=== PATIENT | male | born 1990 | race Asian ===

== ENCOUNTER 2020-01-22 13:04 | Inpatient (IN) | payer MEDICAID ==
[~2020-01-22] VITALS: Ht 180.3 cm; Wt 72.0 kg
[2020-01-22] MEDS ORDERED: RISP0.5T20 PO (13:20)
[2020-01-22] MEDS ORDERED: FLUV50 PO (13:20)
[2020-01-22 14:04] LABS: BASOPHILS % (AUTO) 0.2 % (0.0-2.0); EOSINOPHILS % (AUTO) 0.4 % (1.0-6.0); HEMOGLOBIN 14.6 g/dL (13.5-17.5); LYMPHOCYTES # (AUTO) 1.8 K/uL (1.0-4.8); LYMPHOCYTES % (AUTO) 18.9 % (22.0-44.0); MEAN CORPUSCULAR HGB CONC 33.9 G/dL (31.0-37.0); MEAN CORPUSCULAR VOLUME 94 fL (80-100); MONOCYTES # (AUTO) 0.5 K/uL (0.1-1.0); MONOCYTES % (AUTO) 4.9 % (2.0-9.0); NEUTROPHILS # (AUTO) 7.4 K/uL (1.8-7.7); NEUTROPHILS % (AUTO) 75.6 % (40.0-70.0); PLATELET COUNT (AUTO) 274 K/uL (150-450); RED BLOOD CELL COUNT(AUTO) 4.55 MIL/uL (4.50-5.90); RED CELL DISTRIBUTION WIDTH 13.3 % (11.5-14.5)
[2020-01-22 14:24] LABS: ANION GAP 4 mmol/L (8-16); CALCIUM, TOTAL 8.9 mg/dL (8.8-10.5); CARBON DIOXIDE 32 mmol/L (22-29); CHLORIDE 106 mmol/L (98-107); CREATININE 0.92 mg/dL (0.60-1.30); GLOMERULAR FILTR. RATE CALC > 60 mL/min (>60); GLUCOSE,RANDOM 103 mg/dL (70-110); POTASSIUM 3.9 mmol/L (3.5-5.1); SODIUM SERUM 142 mmol/L (136-145); UREA NITROGEN, BLOOD 6 mg/dL (7-18)
[2020-01-22 14:29] LABS: ALANINE AMINOTRANSFERASE 17 U/L (12-78); ALBUMIN 3.8 g/dL (3.4-5.0); ALKALINE PHOSPHATASE 101 U/L (46-116); ASPARTATE AMINOTRANSFERASE 18 U/L (15-37); BILIRUBIN,TOTAL 0.4 mg/dL (0.1-1.0); TOTAL PROTEIN, SERUM 7.1 g/dL (6.4-8.2)
[2020-01-22 15:30] LABS: AMPHET/METH SCREEN,URINE NEGATIVE (NEGATIVE); BARBITURATE SCREEN, URINE NEGATIVE (NEGATIVE); BENZODIAZEPINES SCREEN,URINE NEGATIVE (NEGATIVE); CANNABINOID SCREEN,URINE POSITIVE (NEGATIVE); COCAINE SCREEN,URINE NEGATIVE (NEGATIVE); METHADONE SCREEN, URINE NEGATIVE (NEGATIVE); OPIATE SCREEN,URINE NEGATIVE (NEGATIVE)
[2020-01-22 15:32] LABS: PHENCYCLIDINE SCREEN,URINE NEGATIVE (NEGATIVE)
[2020-01-22] MEDS ORDERED: LORazepam 1 MG TABLET PO ONE ×2 (15:45→17:00)
[2020-01-22] MEDS ORDERED: PROPARACAINE HCL 0.5% 15 ML OPHTHALMIC SOLUTION OS ONE (16:15)
[2020-01-22] MEDS ORDERED: CIPROFLOXACIN HCL 0.3% 2.5 ML OPHTHALMIC SOLUTION AS ONE (16:15)
[2020-01-22] MEDS ORDERED: FLUORESCEIN SODIUM 1 MG STRIP ONE (16:20)
[2020-01-22] MEDS ORDERED: FLUORESCEIN SODIUM 1 MG STRIP OD ONE (16:30)
[2020-01-22] MEDS ORDERED: RisperiDONE 1 MG TABLET PO ONE (18:00)
[2020-01-22 18:41] LABS: COVID AG,FIA SOURCE NASOPHARYNGEAL
[2020-01-22] MEDS: LORazepam 2 MG TABLET PO PRN (22:27)
[2020-01-22] MEDS: HALOPERIDOL 5 MG TABLET PO PRN (22:28)
[2020-01-23 01:26] VITALS: BP 124/82
[2020-01-23] MEDS: ZOLPIDEM TARTRATE 10 MG TABLET PO PRN ×2 (01:38→20:13)
[2020-01-23] MEDS: HALOPERIDOL 5 MG TABLET PO PRN ×2 (02:14→16:03)
[2020-01-23] MEDS: LORazepam 2 MG TABLET PO PRN ×3 (02:14→17:44)
[2020-01-23] MEDS ORDERED: IBUPROFEN 400 MG TABLET PO PRN (08:00)
[2020-01-23] MEDS ORDERED: ALBUTEROL SULFATE HFA 90 MCG/PUFF 8 GM INHALER IH PRN (08:00)
[2020-01-23] MEDS ORDERED: MAG HYDROX/AL HYDROX/SIMETH ES 30 ML SUSPENSION UDCUP PO PRN (08:00)
[2020-01-23] MEDS ORDERED: PETROLATUM,WHITE 28 GM JELLY TP PRN (08:00)
[2020-01-23] MEDS ORDERED: LOPERAMIDE HCL 2 MG CAPSULE PO PRN (08:00)
[2020-01-23] MEDS ORDERED: ONDANSETRON HCL 4 MG TABLET PO PRN (08:00)
[2020-01-23] MEDS ORDERED: ACETAMINOPHEN 325 MG TABLET PO PRN (08:00)
[2020-01-23] MEDS ORDERED: MAGNESIUM HYDROXIDE SUSPENSION 30 ML UDCUP PO PRN (08:00)
[2020-01-23] MEDS ORDERED: NICOTINE 14 MG/24 HOUR PATCH TD PRN (08:00)
[2020-01-23] MEDS ORDERED: DOCUSATE SODIUM 100 MG CAPSULE PO PRN (08:00)
[2020-01-23] MEDS ORDERED: CloNIDine HCL 0.1 MG TABLET PO PRN (08:00)
[2020-01-23] MEDS ORDERED: GuaiFENesin/D-METHORPHAN [SUGAR-FREE] 200-20MG/10 ML SYRUP UDCUP PO PRN (08:00)
[2020-01-23 08:04] LABS: CHOL/HDL RATIO 1.9 (4.2-7.3)
[2020-01-23 08:39] VITALS: BP 133/82
[2020-01-23] MEDS: RisperiDONE 2 MG TABLET PO SCH (12:54)
[2020-01-23 16:13] VITALS: BP 115/70
[2020-01-23] MEDS: CIPROFLOXACIN HCL 0.3% 3.5 GM OPHTHALMIC OINTMENT OU SCH (17:40)
[2020-01-23] MEDS: FluvoxaMINE MALEATE 50 MG TABLET PO SCH (20:13)
[2020-01-23] MEDS: RisperiDONE 3 MG TABLET PO SCH (20:13)
[2020-01-24 06:05] VITALS: BP 109/74
[2020-01-24] MEDS: LORazepam 2 MG TABLET PO PRN (08:02)
[2020-01-24] MEDS: RisperiDONE 2 MG TABLET PO SCH (08:02)
[2020-01-24] MEDS: CIPROFLOXACIN HCL 0.3% 3.5 GM OPHTHALMIC OINTMENT OU SCH ×4 (08:08→16:09)
[2020-01-24 08:25] VITALS: BP 110/67
[2020-01-24] MEDS: BusPIRone HCL 10 MG TABLET PO SCH ×2 (13:23→16:09)
[2020-01-24] MEDS: HALOPERIDOL 5 MG TABLET PO PRN (13:56)
[2020-01-24 14:25] VITALS: BP 118/89
[2020-01-24 16:23] VITALS: BP 126/85
[2020-01-24] MEDS ORDERED: DiphenhydrAMINE HCL 50 MG/ML VIAL IM ONE (16:30)
[2020-01-24] MEDS ORDERED: HALOPERIDOL LACTATE 5 MG/ML VIAL IM ONE (16:30)
[2020-01-24] MEDS ORDERED: LORazepam 2 MG/ML VIAL IM ONE (16:30)
[2020-01-24] MEDS: RisperiDONE 3 MG TABLET PO SCH (21:01)
[2020-01-24] MEDS: ZOLPIDEM TARTRATE 10 MG TABLET PO PRN (21:01)
[2020-01-24] MEDS: FluvoxaMINE MALEATE 50 MG TABLET PO SCH (21:01)
[2020-01-25 06:58] VITALS: BP 117/69
[2020-01-25 08:23] VITALS: BP 113/74
[2020-01-25] MEDS: BusPIRone HCL 10 MG TABLET PO SCH (09:04)
[2020-01-25] MEDS: RisperiDONE 2 MG TABLET PO SCH (09:05)
[2020-01-25] MEDS: CIPROFLOXACIN HCL 0.3% 3.5 GM OPHTHALMIC OINTMENT OU SCH ×3 (09:05→16:24)
[2020-01-25] MEDS: BusPIRone HCL 15 MG TABLET PO SCH ×2 (13:31→16:24)
[2020-01-25 16:21] VITALS: BP 136/89
[2020-01-25] MEDS: FluvoxaMINE MALEATE 50 MG TABLET PO SCH (20:08)
[2020-01-25] MEDS: ZOLPIDEM TARTRATE 10 MG TABLET PO PRN (20:08)
[2020-01-25] MEDS: RisperiDONE 4 MG TABLET PO SCH (20:08)
[2020-01-26 04:59] VITALS: BP 129/82
[2020-01-26 06:18] VITALS: BP 119/90
[2020-01-26] MEDS ORDERED: RisperiDONE 2 MG TABLET PO SCH (08:00)
[2020-01-26 08:31] VITALS: BP 129/72
[2020-01-26] MEDS: CIPROFLOXACIN HCL 0.3% 3.5 GM OPHTHALMIC OINTMENT OU SCH ×3 (09:22→16:18)
[2020-01-26] MEDS: RisperiDONE 4 MG TABLET PO SCH ×2 (09:22→20:04)
[2020-01-26] MEDS: BusPIRone HCL 15 MG TABLET PO SCH ×3 (09:22→16:18)
[2020-01-26 16:09] VITALS: BP 131/85
[2020-01-26] MEDS: HALOPERIDOL 5 MG TABLET PO PRN (17:24)
[2020-01-26] MEDS: FluvoxaMINE MALEATE 50 MG TABLET PO SCH (20:04)
[2020-01-26] MEDS: ZOLPIDEM TARTRATE 10 MG TABLET PO PRN (20:04)
[2020-01-27 00:37] VITALS: BP 145/88
[2020-01-27] MEDS: HALOPERIDOL 5 MG TABLET PO PRN ×2 (00:47→11:03)
[2020-01-27 09:00] VITALS: BP 116/87
[2020-01-27] MEDS: BusPIRone HCL 15 MG TABLET PO SCH ×2 (09:10→12:04)
[2020-01-27] MEDS: CIPROFLOXACIN HCL 0.3% 3.5 GM OPHTHALMIC OINTMENT OU SCH ×2 (09:10→12:04)
[2020-01-27] MEDS: RisperiDONE 4 MG TABLET PO SCH (09:10)
[2020-01-27] MEDS ORDERED: BUSP15 PO (13:40)
[2020-01-27] MEDS ORDERED: FLUV50 PO ×2 (13:43→13:45)
== END 2020-01-27 14:45 | disposition home or self-care (01) | DRG 751 ==
LOC: EMS 13:09 → B2S 20:00 → B3A 21:27
PROVIDERS: ADMIT Psychiatry & Neurology Psychiatry; ATTEND Psychiatry & Neurology Psychiatry
DX: F33.2 Major depressive disorder, recurrent severe without psychotic features (principal); F12.90 Cannabis use, unspecified, uncomplicated; F17.200 Nicotine dependence, unspecified, uncomplicated; F95.2 Tourette's disorder; F41.9 Anxiety disorder, unspecified; Z20.828 Contact with and (suspected) exposure to other viral communicable diseases; F42.9 Obsessive-compulsive disorder, unspecified; Z81.8 Family history of other mental and behavioral disorders; Z79.899 Other long term (current) drug therapy
CPT/HCPCS: 83036; 87426; G0480; J1200; J1630; J2060

== ENCOUNTER 2021-01-05 11:09 | Emergency (ER) | payer MEDICAID, OTHER ==
[~2021-01-05] VITALS: Ht 172.7 cm; Wt 72.7 kg
[~2021-01-05 11:09] MED LIST: BUSP15 PO; FLUV50 PO; RISP0.5T39 PO
[2021-01-05 11:43] LABS: BASOPHILS % (AUTO) 0.2 % (0.0-2.0); EOSINOPHILS % (AUTO) 1.3 % (1.0-6.0); HEMATOCRIT 43.3 % (41-53); HEMOGLOBIN 14.2 g/dL (13.5-17.5); LYMPHOCYTES # (AUTO) 2.4 K/uL (1.0-4.8); LYMPHOCYTES % (AUTO) 15.5 % (22.0-44.0); MEAN CORPUSCULAR HEMOGLOBIN 30.2 pg (26.0-34.0); MEAN CORPUSCULAR HGB CONC 32.7 G/dL (31.0-37.0); MEAN CORPUSCULAR VOLUME 92 fL (80-100); MONOCYTES # (AUTO) 0.7 K/uL (0.1-1.0); MONOCYTES % (AUTO) 4.4 % (2.0-9.0); NEUTROPHILS # (AUTO) 12.4 K/uL (1.8-7.7); NEUTROPHILS % (AUTO) 78.6 % (40.0-70.0); PLATELET COUNT (AUTO) 354 K/uL (150-450); RED BLOOD CELL COUNT(AUTO) 4.68 MIL/uL (4.50-5.90); RED CELL DISTRIBUTION WIDTH 14.1 % (11.5-14.5)
[2021-01-05 11:48] LABS: COVID AG,FIA SOURCE NASOPHARYNGEAL
[2021-01-05 11:50] LABS: CARBON DIOXIDE 28 mmol/L (22-29); CHLORIDE 100 mmol/L (98-107); POTASSIUM 3.7 mmol/L (3.5-5.1); SODIUM SERUM 137 mmol/L (136-145)
[2021-01-05 11:51] LABS: ANION GAP 9 mmol/L (8-16); CALCIUM, TOTAL 9.2 mg/dL (8.8-10.5); CREATININE 1.01 mg/dL (0.60-1.30); GLOMERULAR FILTR. RATE CALC > 60 mL/min (>60); GLUCOSE,RANDOM 111 mg/dL (70-110); UREA NITROGEN, BLOOD 9 mg/dL (7-18)
[2021-01-05 12:05] LABS: ACETAMINOPHEN < 2 mcg/mL (10-30); ALANINE AMINOTRANSFERASE 23 U/L (12-78); ALBUMIN 3.8 g/dL (3.4-5.0); ALKALINE PHOSPHATASE 132 U/L (46-116); ASPARTATE AMINOTRANSFERASE 17 U/L (15-37); BILIRUBIN,TOTAL 0.4 mg/dL (0.1-1.0); FREE T4 (FREE THYROXINE) 1.26 ng/dL (0.76-1.46); THYROID STIMULATING HORMONE 0.44 uIU/mL (0.36-3.74); TOTAL PROTEIN, SERUM 8.4 g/dL (6.4-8.2)
[2021-01-05 12:07] LABS: SALICYLATE 0.9 mg/dL (2.8-20.0)
[2021-01-05] MEDS ORDERED: RisperiDONE 1 MG TABLET PO ONE (12:45)
[2021-01-05] MEDS ORDERED: LORazepam 2 MG TABLET PO ONE (12:45)
[2021-01-05 13:27] VITALS: BP 153/97
== END 2021-01-05 13:46 | disposition home or self-care (01) ==
LOC: EMS 11:13
DX: F41.9 Anxiety disorder, unspecified (principal); F42.9 Obsessive-compulsive disorder, unspecified; Z20.822 Contact with and (suspected) exposure to COVID-19
CPT/HCPCS: 80053; 84439; 84443; 84484; 85025; 87426; 93005; 99284; G0480; G0481